=== PATIENT | male | born 1990 ===

== ENCOUNTER 2018-01-16 20:33 | Emergency (ER) | payer OTHER ==
[~2018-01-16] VITALS: Ht 170.2 cm; Wt 69.4 kg
[~2018-01-16 20:33] MED LIST: KETO10TA2 PO
== END 2018-01-16 22:19 | disposition home or self-care (01) ==
LOC: ER 20:33
DX: M54.89 Other dorsalgia (principal); M79.604 Pain in right leg

== ENCOUNTER 2018-01-20 13:46 | Outpatient (CLI) | payer OTHER | END 2018-01-20 13:48 | disposition home or self-care (01) | LOC: RAD 13:46 | DX: M54.5 Low back pain (principal) ==

== ENCOUNTER → 2019-05-28 08:50 | Outpatient (CLI) | payer OTHER | END | disposition home or self-care (01) | LOC: LAB 08:50 | DX: J11.1 Influenza due to unidentified influenza virus with other respiratory manifestations (principal); E78.49 Other hyperlipidemia; Z00.00 Encounter for general adult medical examination without abnormal findings; E55.9 Vitamin D deficiency, unspecified ==

== ENCOUNTER 2023-06-04 06:45 | Emergency (ER) | payer OTHER ==
[~2023-06-04] VITALS: Ht 170.2 cm; Wt 71.7 kg
[2023-06-04 09:10] LABS: HEMATOCRIT 46.2 % (39.0-48.0); HEMOGLOBIN 15.2 g/dL (13-16.00); MEAN CELL VOLUME 92.1 fL (80.0-100.00); MEAN CORPUSCULAR HEMOGLOBIN 30.2 pg (27.00-32.0); MEAN CORPUSCULAR HGB CONC 32.8 g/dl (32.0-36.0); PLATELET COUNT 192 K/uL (150-450); RED BLOOD COUNT 5.02 M/uL (4.00-6.00); RED CELL DISTRIBUTION WIDTH 13.3 % (11.5-14.5)
[2023-06-04 09:31] LABS: CALCIUM 9.4 mg/dL (8.5-10.1); CREATININE SERUM 1.05 mg/dL (0.70-1.30); GFR 82.93; POTASSIUM 4.21 mEq/L (3.5-5.1)
[2023-06-04 09:46] LABS: PH,URINE 5.5 (5.0-8.0); URINE APPEARANCE Clear; URINE BILIRRUBIN Negative (NEGATIVE); URINE BLOOD Negative; URINE COLOR Dark Yellow; URINE GLUCOSE Negative (NEGATIVE); URINE LEUKOCYTE Trace; URINE NITRATE Negative; URINE PROTEIN Trace (NEGATIVE); URINE UROBILINOGEN 0.2 E.U./dl
[2023-06-04 09:50] LABS: URINE BACTERIA 8.8 uL (0.0-1933); URINE RBC 2.8 uL (0.0-20.8)
== END 2023-06-04 14:57 | disposition home or self-care (01) ==
LOC: ER 06:45
PROVIDERS: Emergency Medicine
DX: K52.9 Noninfective gastroenteritis and colitis, unspecified (principal)

== ENCOUNTER 2023-07-15 06:10 | Day surgery (SDC) | payer OTHER ==
[2023-07-08 08:23] LABS: HEMATOCRIT 43.7 % (39.0-48.0); HEMOGLOBIN 14.8 g/dL (13-16.00); MEAN CELL VOLUME 90.2 fL (80.0-100.00); MEAN CORPUSCULAR HEMOGLOBIN 30.7 pg (27.00-32.0); PLATELET COUNT 203 K/uL (150-450); RED BLOOD COUNT 4.84 M/uL (4.00-6.00); RED CELL DISTRIBUTION WIDTH 13.9 % (11.5-14.5)
[2023-07-08 08:24] LABS: URINE APPEARANCE Clear; URINE BILIRRUBIN Negative (NEGATIVE); URINE BLOOD Negative; URINE COLOR Yellow; URINE GLUCOSE Negative (NEGATIVE); URINE LEUKOCYTE Negative; URINE NITRATE Negative; URINE PROTEIN Negative (NEGATIVE); URINE UROBILINOGEN 0.2 E.U./dl
[2023-07-08 09:00] LABS: INR 1.01; PARTIAL THROMBOPLASTIN TIME 30.1 SECONDS (22.0-34.0); PROTHROMBIN TIME 10.6 SECONDS (9.0-11.5)
[2023-07-08 09:10] LABS: CALCIUM 9.4 mg/dL (8.5-10.1); CREATININE SERUM 1.11 mg/dL (0.70-1.30); GFR 77.78; POTASSIUM 4.82 mEq/L (3.5-5.1)
[2023-07-08 09:26] LABS: URINE EPITHELIAL CELLS 0.4 uL (0.0-38.8); URINE RBC 1.4 uL (0.0-20.8)
[2023-07-15] MEDS ORDERED: PERCOCET 5-3251 EACH PO (09:35)
[2023-07-15] MEDS ORDERED: NEURONTIN300 MG PO (09:36)
[2023-07-15] MEDS ORDERED: POLY119PG PO (09:36)
== END 2023-07-15 14:55 | disposition home or self-care (01) ==
LOC: CIR.AMB 06:10
PROVIDERS: ATTEND Surgery
DX: K42.0 Umbilical hernia with obstruction, without gangrene (principal); Z20.822 Contact with and (suspected) exposure to COVID-19